=== PATIENT | female | born 1995 | race Caucasian/White ===

== ENCOUNTER 2023-08-29 21:51 | Outpatient (REF) | payer OTHER, SELFPAY ==
[2023-09-01 22:07] LABS: Age Gdln ACOG Testing Note (.); IGP, rfx Aptima HPV ASCU Note (.)
== END 2023-08-29 21:52 | disposition home or self-care (01) ==
LOC: LAB 21:51
PROVIDERS: Visit Provider Obstetrics & Gynecology
DX: Z01.419 Encounter for gynecological examination (general) (routine) without abnormal findings (principal)
CPT/HCPCS: G0145